=== PATIENT | female | born 1990 | race Caucasian/White ===

== ENCOUNTER 2025-03-31 06:20 | Day surgery (SDC) | payer BC, SELFPAY ==
[2025-03-31] VITALS (9 sets, daily range): BP systolic 101–107; BP diastolic 56–75; BMI 22.3
--- NOTE | 2025-03-31 07:08 | W.SUR.PREOP ---
Pre-Operative Surgical Note
-
I have examined this patient prior to the performance of the scheduled procedure.
The patient's condition is unchanged from the time of the current History and
Physical and the patient is able to undergo the scheduled procedure.
[2025-03-31] MEDS: NORMOSOL-R/PLASMALYTE-A 1000 IV (10:08)
[2025-03-31] MEDS: TYLENOL ORAL SOLUTION 1000 MG PO (10:14)
[2025-03-31] MEDS: TRANSDERM-SCOP 1 PATCH TRANSDERM (11:26)
--- NOTE | 2025-03-31 13:46 | W.IMMPOSTOP ---
Surgical Immed Post Op Note
-
Primary Surgeon: Kris Bee MD
Assisting Surgeon: Derrell Mariano MD (PGY 1)
Pre-op Diagnosis: Right upper quadrant pain, 2 cm umbilical hernia
Post-op Diagnosis: Same
Procedure Performed:
1. Diagnostic laparoscopy
2. Open primary umbilical hernia repair
Anesthesia Type: General
Specimen / Cultures: None
Estimated Blood Loss: 3 cc
Complications: None
Operative Findings: 2 cm umbilical hernia. Diagnostic laparoscopy performed in all 4 quadrants inspected. No obvious pathology identified. No implants noted along the wall or around the liver. The gallbladder looked completely normal without any
evidence of inflammation. Hernia closed primarily with 3 mdgzpo-gf-dwlpu 0 Surgilon sutures.
--- NOTE | 2025-03-31 13:48 | OR.RPT ---
Operative Report
Operative Report
Patient Name: Lidia Xiong
: 1990
Date of Operation: 03/31/2025
Preoperative Diagnosis: Right upper quadrant pain, 2 cm umbilical hernia
Postoperative Diagnosis: Same
Procedure(s):
Diagnostic laparoscopy
Open primary umbilical hernia
Surgeon(s):
Dr. Bee
Ultimate Hoops Scoreboard Operator(s):
Derrell Mariano MD (PGY 1)
Anesthesia: General
Estimated Blood Loss: 3 cc
Urine Output: None
Drains/Lines/Implants: None
Specimens: None
Indication for surgery:
The patient has a symptomatic umbilical hernia as well as postprandial right upper quadrant pain thought to be potentially biliary in nature however all preoperative workup including CT scan, ultrasound as well as HIDA scan all negative. After
review of their therapeutic options, they elected to pursue a combined diagnostic laparoscopy and open hernia repair.
Operative Findings: 2 cm umbilical hernia containing preperitoneal fat. Diagnostic laparoscopy performed in all 4 quadrants inspected. No obvious pathology identified. No implants noted along the wall or around the liver. The gallbladder looked
completely normal without any evidence of inflammation. Hernia closed primarily with 3 htfptc-vl-zfzuo 0 Surgilon sutures.
Details of the operation:
After successful induction of anesthesia, the patient was prepped and draped in the supine position. A team timeout was performed confirming administration of DVT prophylaxis, IV antibiotics and SCDs. The skin was anesthetized with 0.25% Marcaine
and an infraumbilical incision was made and dissection carried down to the fascia. The hernia sac was then encircled and carefully dissected off of the umbilical stalk and debulked using 3-0 Vicryl ties before it was returned to the abdomen. The
defect measured 2 cm. This defect was cannulated with a 5 mm balloon trocar and pneumoperitoneum was established. After confirming no injury upon entry an additional 5 mm trocar was placed in the right upper quadrant. We then began a diagnostic
laparoscopy examining all 4 quadrants of the abdomen and found no overt pathology. We focused our attention to the gallbladder which looked completely normal, without any evidence of inflammation or adhesions. Pictures were taken and placed in her
chart. Pneumoperitoneum was then evacuated. The defect was then closed in the transverse direction using three 0 Surgilon zfuaff-wz-diach sutures. The umbilical stalk was then tacked down to the fascia with a 3-0 Vicryl suture. The dermis was
then approximated with interrupted 3-0 Vicryl sutures followed by Dermabond. The 5 mm port was closed with Monocryl and also covered with glue. The patient returned to the Recovery Room in stable condition. Sponge and instrument counts were
correct. No specimens sent to Pathology.
I was the attending physician and performed the procedure with assistance from the resident above. I was present for all portions of the case.
Kris Bee MD
== END 2025-03-31 15:36 | disposition home or self-care (01) ==
LOC: SDS 06:20
PROVIDERS: ATTENDING PHYSICIAN Surgery
DX: K42.9 Umbilical hernia without obstruction or gangrene (principal); R10.11 Right upper quadrant pain
CPT/HCPCS: 49591

== ENCOUNTER → 2025-04-15 12:34 | Outpatient (REF) | payer BC, SELFPAY | LOC: HWRAD 12:34 | PROVIDERS: ATTENDING PHYSICIAN Surgery; FAMILY PHYSICIAN Family Medicine | DX: N13.2 Hydronephrosis with renal and ureteral calculous obstruction (principal) | CPT/HCPCS: 74018; 76770 ==

== ENCOUNTER → 2025-04-22 14:15 | Outpatient (REF) | payer BC, SELFPAY | LOC: HWRAD 14:15 | PROVIDERS: ATTENDING PHYSICIAN Surgery; FAMILY PHYSICIAN Family Medicine | DX: N13.2 Hydronephrosis with renal and ureteral calculous obstruction (principal) | CPT/HCPCS: 74176 ==

== ENCOUNTER 2025-06-14 10:46 | Emergency (ER) | payer BC, SELFPAY ==
[2025-06-14 10:48] VITALS: BP 116/80
[2025-06-14 11:07] VITALS: BP 121/51
--- NOTE | 2025-06-14 11:13 | ED.GENMED ---
History of Present Illness
General
Chief Complaint: Flank Pain
Time Seen by Provider: 06/14/25 11:03
History of Present Illness
History of Present Illness:
34-year-old female presents the emergency department for evaluation of intermittent left flank pain for the past 4 to 5 days, became severe this morning prompting her to come to the emergency department. She has a prior history of kidney stones but
this does not feel similar. Notes questionable hematuria and urinary urgency this morning. No associated fevers, chills, sweats, or vomiting today. Prior history abdominal surgery includes x 3 and umbilical hernia repair.
Review of Systems
Review of Systems
Allergies reviewed?: Yes
All Other Systems: ROS reviewed and negative except as documented in HPI and ROS
Phy Exam
Physical Exam
Physical Exam:
GEN: Well appearing, NAD, WDWN
HEENT: Oral mucosa moist, no scleral icterus
Cardiac: Regular rate
Lung: No respiratory distress, no tachypnea
Abdomen: Soft, grossly nontender, no rigidity
MSK: No gross deformity or injuries
Skin: Good color, no pallor or jaundice, no rashes
Neuro: AO x3, moves all extremities freely
Psych: Calm, cooperative
Course
Orders/Labs/Results
Orders:
Orders
06/14/25 11:12
0.9% Sodium Chloride 1000 ml [Nss] 1,000 ml IV BOLUS
Ketorolac [Toradol] 15 mg IV NOW STA
Test Result ONCE
06/14/25 11:13
CT Abd/pel Without Iv Or Oral Urgent
Comment:
Reason For Exam: L flank pain
06/14/25 11:33
Complete Blood Count/No Diff Urgent
Comprehensive Metabolic Panel Urgent
HCG, Serum Qualitative Screen Urgent
Urinalysis Reflex To Culture Urgent
Date Specimen was Collected: 06/14/25
Time Specimen was Collected: 11:18
Urine Microscopic Reflex Cult Urgent
Urine Culture Urgent
NIYA Source: U
Specimen Description:
Date Specimen was Collected: 06/14/25
Time Specimen was Collected: 11:18
Abnormal Lab Results
06/14/25
11:33
WBC 13.6 H 10^3/uL
(4.8-10.8)
MCHC 32.7 L g/dL
(33.0-37.0)
MPV 11.3 H fL
(7.4-10.4)
Chloride 108 H mmol/L
(98-107)
Glucose 102 H mg/dl
(70-99)
Calcium 10.7 H mg/dl
(8.4-10.2)
Urine Ketones 1+ A
(Negative)
Ur Occult Blood Reflex 4+ A
(Negative)
Leukocyte Esterase Rfl 1+ A
(Negative)
Urine RBC 50-60 A /HPF
(0-2)
Urine Bacteria (Reflex) Few A
(Negative)
Urine Albumin (Reflex) 1+ A
(Neg - Trace)
06/14/25 11:33
06/14/25 11:33
Vital Signs
Initial and Last Documented VS:
Initial Vital Signs
Temp Pulse Resp BP Pulse Ox
98.8 F 85 17 116/80 99
06/14/25 10:48 06/14/25 10:48 06/14/25 10:48 06/14/25 10:48 06/14/25 10:48
Last Documented Vital Signs
Temp Pulse Resp BP Pulse Ox
98.5 F 89 16 114/73 100
06/14/25 11:30 06/14/25 13:52 06/14/25 13:52 06/14/25 13:52 06/14/25 13:52
MDM/Problems Addressed
MDM/Problems Addressed:
Imaging reveals a punctate stone in the distal ureter at the UVJ. Although this is most likely passable the patient is concerned with her history of small stones do not pass. I reached out to her urologist who will plan to schedule her for OR
procedure later this week should she not pass at home. Her pain is well-controlled that she is reasonable to discharge home for expectant management pending outpatient operative procedure.
*Pulse Oximetry
SaO2: 99
Oxygen Mode of Delivery: Room air
Patient hypoxic: no
*Critical Care Note
Total Time (30-74mins, 75-104mins- exclusive of procedures): Not Applicable
ED Attending Note
-
Portions of this chart may have been created with voice recognition software.� Occasional wrong word or��sound alike� substitutions may have occurred due to the inherent limitations of voice recognition software.
Discharge Plan
Departure
Patient Disposition: Home (Routine Discharge)
Date of Disposition: 06/14/25
Time of Disposition: 13:44
Patient with high blood pressure during this ER visit?: No
Discharge Problem:
Left ureteral stone
Instructions: Kidney Stones (DC)
Prescriptions:
New
tamsulosin 0.4 mg capsule
0.4 mg PO HS Qty: 14 0RF
ketorolac 10 mg tablet
10 mg PO Q8H PRN (Reason: Pain) Qty: 10 0RF
Rx Instructions:
maximum total duration of 5 days from all oral, intranasal, or parenteral formulations
No Action
polyethylene glycol 3350 [Miralax] 17 gram Powder In Packet
17 g PO DAILY
aspirin 81 mg Tablet,Delayed Release (Dr/Ec)
81 mg PO DAILY
alprazolam [Xanax] 0.25 mg Tablet
0.25 mg PO BID
ondansetron 4 mg Tablet,Disintegrating
4 mg PO Q6H PRN (Reason: nausea)
zp-ok-vnxe-FA-Ca carb-vit K 18 mg iron-400 mcg-500 mg Tablet
1 tab PO DAILY
Nurtec ODT 75 mg Tablet,Disintegrating
75 mg PO ONCE PRN (Reason: migraines)
acetaminophen [acetaminophen] 325 mg tablet
650 mg PO Q6HPRN PRN (Reason: mild pain) Qty: 14 0RF
ibuprofen 600 mg tablet
600 mg PO Q6H PRN (Reason: pain) Qty: 14 0RF
Referrals:
Yonis Cartagena MD [Active, Urology] - Call in 1-3 days for appt
David Hoff MD [Family Provider, Family Practice]
Interventions
Interventions:
*Risk Screen - Suicide Last Done: 06/14/25 10:49
*General Assessment Last Done: 06/14/25 10:49
*Neglect/Abuse Screening Last Done: 06/14/25 10:49
*ED- Fall Risk Assessment Last Done: 06/14/25 11:47
*ED COVID-19 Vaccine History Last Done: 06/14/25 10:49
*Nursing Disposition Last Done: 06/14/25 13:53
ES-Sxlgne-Sgztxyxiwp Assessment Last Done: 06/14/25 11:47
ED-Female Genitourinary Assessment Last Done: 06/14/25 11:47
Discharge Date and Time
Discharge Date/Time: 06/14/25 13:54
Print Language: CROATIAN
[2025-06-14 11:30] VITALS: BP 121/51; BMI 21.1
[2025-06-14] MEDS: NSS 1000 IV (11:31)
[2025-06-14] MEDS: TORADOL 15 MG IV (11:31)
[2025-06-14 11:43] LABS: Hematocrit 37.6 % (37.0-47.0); Hemoglobin 12.3 g/dL (12.0-16.0); Mean Corp Hgb Conc. 32.7 g/dL (33.0-37.0); Mean Corpuscular Volume 83.2 fL (81.0-99.0); Platelet Count 221 10^3/uL (130-400); Red Cell Dist. Width 13.2 % (11.5-14.5)
[2025-06-14 11:59] LABS: HCG, Serum Qualitative Screen Negative
[2025-06-14 12:01] LABS: ALT (SGPT) < 10 U/L (0-35); AST (SGOT) 15 U/L (14-36); Albumin 4.9 g/dl (3.5-5.0); Alkaline Phosphatase 58 U/L (38-126); Blood Urea Nitrogen 7 mg/dl (7-17); Calcium 10.7 mg/dl (8.4-10.2); Carbon Dioxide 22 mmol/L (22-30); Chloride 108 mmol/L (98-107); Estimated Creatinine Clearance 115 ml/min; Glucose 102 mg/dl (70-99); Potassium 4.5 mmol/L (3.5-5.1); Sodium 138 mmol/L (135-145); Total Protein 7.5 g/dl (6.3-8.2); eGFR > 60.00
[2025-06-14 12:14] LABS: Urine Character Clear (Clear)
[2025-06-14 12:22] LABS: Urine Red Blood Cell 50-60 /HPF (0-2); Urine White Cell 0-2 /HPF (0-5)
[2025-06-14 12:47] VITALS: BP 109/59
[2025-06-14 13:50] VITALS: BP 114/73
[2025-06-14 13:52] VITALS: BP 114/73
== END 2025-06-14 13:54 | disposition home or self-care (01) ==
LOC: EMR 10:46
PROVIDERS: Physician Assistant; EMERGENCY PHYSICIAN Emergency Medicine; FAMILY PHYSICIAN Family Medicine
DX: N20.1 Calculus of ureter (principal); Z87.442 Personal history of urinary calculi
CPT/HCPCS: 99284; 96374; 96361; 74176; 80053; 81003; 81015; 84703; 85027; 87086

== ENCOUNTER 2025-06-17 06:17 | Day surgery (SDC) | payer BC, SELFPAY ==
[2025-06-17] VITALS (9 sets, daily range): BP systolic 105–122; BP diastolic 63–78; BMI 20.3
--- NOTE | 2025-06-17 13:30 | W.SUR.PREOP ---
Pre-Operative Surgical Note
-
I have examined this patient prior to the performance of the scheduled procedure.
The patient's condition is unchanged from the time of the current History and
Physical and the patient is able to undergo the scheduled procedure.
Left UVJ stone noted on CT imaging.
To OR for left URS/stone extraction/stent placement
IV Levaquin 500 mg auction clerk to OR
[2025-06-17] MEDS: TYLENOL ORAL SOLUTION 650 MG PO (14:51)
[2025-06-17] MEDS: ROXICODONE 5 MG PO (15:35)
== END 2025-06-17 16:32 | disposition home or self-care (01) ==
LOC: SDS 06:17
PROVIDERS: ATTENDING PHYSICIAN Surgery
DX: N23 Unspecified renal colic (principal); Z87.442 Personal history of urinary calculi
CPT/HCPCS: 52351; 74018; 76000

== ENCOUNTER 2025-06-22 02:15 | Emergency (ER) | payer BC, SELFPAY ==
[2025-06-22] VITALS (10 sets, daily range): BP systolic 110–128; BP diastolic 67–85; BMI 21.4
[2025-06-22 02:51] LABS: Urine Character Cloudy (Clear)
[2025-06-22 03:30] LABS: Urine Red Blood Cell 40-50 /HPF (0-2)
[2025-06-22] MEDS: NSS 1000 IV (04:47)
[2025-06-22 05:01] LABS: Hematocrit 36.8 % (37.0-47.0); Hemoglobin 12.2 g/dL (12.0-16.0); Mean Corp Hgb Conc. 33.2 g/dL (33.0-37.0); Mean Corpuscular Volume 83.1 fL (81.0-99.0); Nucleated Red Blood Cells % 0 %; Platelet Count 220 10^3/uL (130-400); Red Cell Dist. Width 13.1 % (11.5-14.5)
[2025-06-22 05:08] LABS: HCG, Serum Qualitative Screen Negative
[2025-06-22 05:16] LABS: ALT (SGPT) < 10 U/L (0-35); AST (SGOT) 13 U/L (14-36); Albumin 4.9 g/dl (3.5-5.0); Alkaline Phosphatase 57 U/L (38-126); Blood Urea Nitrogen 12 mg/dl (7-17); Calcium 11.0 mg/dl (8.4-10.2); Carbon Dioxide 22 mmol/L (22-30); Chloride 108 mmol/L (98-107); Estimated Creatinine Clearance 115 ml/min; Glucose 97 mg/dl (70-99); Potassium 4.3 mmol/L (3.5-5.1); Sodium 140 mmol/L (135-145); Total Protein 7.7 g/dl (6.3-8.2); eGFR > 60.00
--- NOTE | 2025-06-22 05:44 | ED.GENMED ---
History of Present Illness
<ADELINE Pena Jr. Last Filed: 06/23/25 17:42>
General
Chief Complaint: Flank Pain
Source: patient
Exam Limitations: none
Time Seen by Provider: 06/22/25 04:23
Nursing documentation reviewed up to this point in time: agreed with
History of Present Illness
History of Present Illness:
34-year-old female presenting to the emergency department today with concerns of right lower quadrant abdominal pain over the past few days. Has had some degree of pain intermittently over the past few months but claims it is much more severe over
the past 24 hours or so. Also recently had a stone removal of the left ureter 5 days ago. She claims the left side feels better at this point. Does have associated nausea and vomiting.
Review of Systems
<ADELINE Pena Jr. Last Filed: 06/23/25 17:42>
Review of Systems
Allergies reviewed?: Yes
All Other Systems: ROS reviewed and negative except as documented in HPI and ROS
Phy Exam
<ADELINE Pena Jr. Last Filed: 06/23/25 17:42>
Physical Exam
Physical Exam:
GENERAL: Alert , in no apparent distress
EYE: pupils equal and reactive
NECK: Supple, no significant adenopathy.
ENT: o/p clr, mmm.
CARDIAC: Regular rate and rhythm .
LUNGS: Clear breath sounds bilaterally, no acute respiratory distress, no wheezes/rales/rhonchi
ABDOMEN: Right lower quadrant pain to palpation otherwise soft, without focal tenderness, no r/g, no cvat
NEUROLOGICAL: Alert and oriented, no focal neuro deficits
SKIN: Warm and dry, skin intact.
MUSCULOSKELETAL: No edema, well perfused.
PSYCH: Normal and appropriate interaction.
Course
<ADELINE Pena Jr. Last Filed: 06/23/25 17:42>
Orders/Labs/Results
Orders:
Orders
06/22/25 02:20
Complete Blood Count/With Diff Urgent
Comprehensive Metabolic Panel Urgent
HCG, Serum Qualitative Screen Urgent
06/22/25 02:33
Urinalysis Urgent
Date Specimen was Collected: 06/22/25
Time Specimen was Collected: 02:21
Urine Microscopic Urgent
Date Specimen was Collected: 06/22/25
Time Specimen was Collected: 02:21
06/22/25 04:33
Test Result ONCE
06/22/25 04:47
0.9% Sodium Chloride 1000 ml [Nss] 1,000 ml IV BOLUS
06/22/25 05:24
Dicyclomine HCl [Bentyl] 20 mg IM NOW STA
Ketorolac [Toradol] 15 mg IV NOW STA
Ondansetron Injectable [Zofran] 4 mg IV NOW STA
06/22/25 05:44
CT Abd/pel W Iv And Oral Contr Urgent
Comment:
Reason For Exam: RLQ pain
Iohexol [Omnipaque] See Protocol PO NOW STA
06/22/25 08:31
Morphine Sulfate 2 mg .ROUTE .STK-MED ONE
Morphine Sulfate 2 mg IV NOW STA
06/22/25 10:35
Amoxicillin 875 mg/Clav 125 mg [Augmentin 875 mg/125 mg] 1 tablet PO NOW STA
Phenazopyridine HCl [Pyridium] 200 mg PO NOW STA
Abnormal Lab Results
06/22/25 06/22/25
02:20 02:33
WBC 12.6 H 10^3/uL
(4.8-10.8)
Hct 36.8 L %
(37.0-47.0)
MPV 11.9 H fL
(7.4-10.4)
Abs Immat Gran (auto) 0.1 H 10^3/uL
(0-0.05)
Absolute Neuts (auto) 9.3 H 10^3/uL
(1.4-6.5)
Absolute Monos (auto) 0.9 H 10^3/uL
(0.1-0.6)
Lymphocytes % 18.4 L %
(20.5-51.1)
Chloride 108 H mmol/L
(98-107)
Calcium 11.0 H mg/dl
(8.4-10.2)
AST 13 L U/L
(14-36)
Urine Occult Blood 4+ A
(Negative)
Ur Leukocyte Esterase 2+ A
(Negative)
Urine RBC 40-50 A /HPF
(0-2)
Urine Bacteria Few A
(Negative)
Urine Albumin 2+ A
(Neg - Trace)
06/22/25 02:20
06/22/25 02:20
Vital Signs
Initial and Last Documented VS:
Initial Vital Signs
Temp Pulse Resp BP Pulse Ox
98 F 86 22 110/80 100
06/22/25 02:16 06/22/25 02:16 06/22/25 02:16 06/22/25 02:16 06/22/25 02:16
Last Documented Vital Signs
Temp Pulse Resp BP Pulse Ox
98.3 F 75 16 115/69 100
06/22/25 08:26 06/22/25 10:08 06/22/25 10:08 06/22/25 10:08 06/22/25 10:08
<KOURTNEY Dodson - Last Filed: 06/22/25 11:07>
Orders/Labs/Results
Orders:
Orders
06/22/25 02:20
Complete Blood Count/With Diff Urgent
Comprehensive Metabolic Panel Urgent
HCG, Serum Qualitative Screen Urgent
06/22/25 02:33
Urinalysis Urgent
Date Specimen was Collected: 06/22/25
Time Specimen was Collected: 02:21
Urine Microscopic Urgent
Date Specimen was Collected: 06/22/25
Time Specimen was Collected: 02:21
06/22/25 04:33
Test Result ONCE
06/22/25 04:47
0.9% Sodium Chloride 1000 ml [Nss] 1,000 ml IV BOLUS
06/22/25 05:24
Dicyclomine HCl [Bentyl] 20 mg IM NOW STA
Ketorolac [Toradol] 15 mg IV NOW STA
Ondansetron Injectable [Zofran] 4 mg IV NOW STA
06/22/25 05:44
CT Abd/pel W Iv And Oral Contr Urgent
Comment:
Reason For Exam: RLQ pain
Iohexol [Omnipaque] See Protocol PO NOW STA
06/22/25 08:31
Morphine Sulfate 2 mg .ROUTE .STK-MED ONE
Morphine Sulfate 2 mg IV NOW STA
06/22/25 10:35
Amoxicillin 875 mg/Clav 125 mg [Augmentin 875 mg/125 mg] 1 tablet PO NOW STA
Phenazopyridine HCl [Pyridium] 200 mg PO NOW STA
Abnormal Lab Results
06/22/25 06/22/25
02:20 02:33
WBC 12.6 H 10^3/uL
(4.8-10.8)
Hct 36.8 L %
(37.0-47.0)
MPV 11.9 H fL
(7.4-10.4)
Abs Immat Gran (auto) 0.1 H 10^3/uL
(0-0.05)
Absolute Neuts (auto) 9.3 H 10^3/uL
(1.4-6.5)
Absolute Monos (auto) 0.9 H 10^3/uL
(0.1-0.6)
Lymphocytes % 18.4 L %
(20.5-51.1)
Chloride 108 H mmol/L
(98-107)
Calcium 11.0 H mg/dl
(8.4-10.2)
AST 13 L U/L
(14-36)
Urine Occult Blood 4+ A
(Negative)
Ur Leukocyte Esterase 2+ A
(Negative)
Urine RBC 40-50 A /HPF
(0-2)
Urine Bacteria Few A
(Negative)
Urine Albumin 2+ A
(Neg - Trace)
06/22/25 02:20
06/22/25 02:20
Vital Signs
Initial and Last Documented VS:
Initial Vital Signs
Temp Pulse Resp BP Pulse Ox
98 F 86 22 110/80 100
06/22/25 02:16 06/22/25 02:16 06/22/25 02:16 06/22/25 02:16 06/22/25 02:16
Last Documented Vital Signs
Temp Pulse Resp BP Pulse Ox
98.3 F 75 16 115/69 100
06/22/25 08:26 06/22/25 10:08 06/22/25 10:08 06/22/25 10:08 06/22/25 10:08
<Antonino Larson Jr., PA-C - Last Filed: 06/23/25 17:42>
MDM/Problems Addressed
MDM/Problems Addressed:
34-year-old female presenting to the emergency department today with concerns of right lower quadrant abdominal pain worsening over the past day or so. On arrival vital signs normal. Labs showing slight elevation of white count of 12.611 labs
unremarkable urinalysis with red blood cells but no evidence of infection. Does have reproducible pain to the right lower quadrant and does have an appendix plan for CT scan for further assessment.
<Antonino Larson Jr., PA-C - Last Filed: 06/23/25 17:42>
*Pulse Oximetry
SaO2: 98
Oxygen Mode of Delivery: Room air
<KOURTNEY Dodson - Last Filed: 06/22/25 11:07>
*Radiology
Radiology exam reviewed: radiology read reviewed
*Pulse Oximetry
Patient hypoxic: no
*Critical Care Note
Total Time (30-74mins, 75-104mins- exclusive of procedures): Not Applicable
<KOURTNEY Dodson - Last Filed: 06/22/25 11:07>
Update Note
Update Note:
Received signout on patient. Patient complains of pain to the abdomen at this point general abdominal pain, patient was taken to the OR several days ago by urology Dr. Cartagena for left UVJ stone however no stone was identified during procedure.
Patient presenting awake alert no acute distress afebrile white count minimally elevated 12 .6 normal renal function; blood and urine. CAT scan with unremarkable appendix no intestine obstruction or free air and the previous suspected calculus at
the left UVJ is no longer identified there is no suspicious findings for obstructive uropathy bilaterally. no cause of patient's pain on CAT scan.
Patient reexamined continues to complain of pain bilateral flank worse on the left. After additional history and questions patient reports now she has had chronic pain in abdomen and has been evaluated by GI. She lives in [facility] and was seen
by GI Dr. Robles had negative endoscopy and colonoscopy. Now she is in the process of also seeing GI at [place]. She last saw him in April and is scheduled for additional testing. She reports there has been no diagnosis so far as a cause to her
pain. With a negative CAT scan I did speak with urology Dr. Cartagena. She does complain of some pain to the left flank with burning with urination. With recent surgery as per DR Cartagena, will prescribe Augmentin and Pyridium. Urology will message
scheduler maintenance and have patient also evaluated by Dr. Blanco.
ED Attending Note
<Antonino Larson Jr., ADELINE - Last Filed: 06/23/25 17:42>
-
Portions of this chart may have been created with voice recognition software.� Occasional wrong word or��sound alike� substitutions may have occurred due to the inherent limitations of voice recognition software.
Discharge Plan
Departure
Patient Disposition: Home (Routine Discharge)
Date of Disposition: 06/22/25
Time of Disposition: 10:29
Patient with high blood pressure during this ER visit?: No
Condition: Fair
Covid-19: Not Applicable
Discharge Problem:
flank pain, Chronic abdominal pain
Instructions: Flank Pain (DC)
Prescriptions:
New
phenazopyridine [Pyridium] 200 mg tablet
200 mg PO BID PRN (Reason: Pain) Qty: 10 0RF
amoxicillin-pot clavulanate 875-125 mg tablet
1 tab PO BID Qty: 10 0RF
No Action
aspirin 81 mg Tablet,Delayed Release (Dr/Ec)
81 mg PO DAILY
ondansetron 4 mg Tablet,Disintegrating
4 mg PO Q6H PRN (Reason: nausea)
co-fw-zoah-FA-Ca carb-vit K 18 mg iron-400 mcg-500 mg Tablet
1 tab PO DAILY
Nurtec ODT 75 mg Tablet,Disintegrating
75 mg PO ONCE PRN (Reason: migraines)
acetaminophen [acetaminophen] 325 mg tablet
650 mg PO Q6HPRN PRN (Reason: mild pain) Qty: 14 0RF
ibuprofen 600 mg tablet
600 mg PO Q6H PRN (Reason: pain) Qty: 14 0RF
ketorolac 10 mg Tablet
10 mg PO Q6H PRN (Reason: flank pain)
Rx Instructions:
maximum total duration of 5 days from all oral, intranasal, or parenteral formulations
Referrals:
Yonis Cartagena MD [Active, Urology]
Francis,Steph, DO [Active, Urology]
UNKNOWN - PT DOES,NOT KNOW [Family Provider]
Activity Restrictions/Additional Instructions:
As discussed there is no clear cause of your pain however a prescription for Pyridium was sent to your pharmacy to take for discomfort with urination along with Augmentin to treat for possible infection since you recently had surgery. Please
follow-up with urology. In addition Dr. Blanco's office will call you to schedule an appointment to further evaluate symptoms. Return if any worsening of symptoms. In addition please continue to follow-up with a GI specialist for additional
testing.
Interventions
Interventions:
*Risk Screen - Suicide Last Done: 06/22/25 02:16
*General Assessment Last Done: 06/22/25 04:58
*Neglect/Abuse Screening Last Done: 06/22/25 02:16
*ED- Fall Risk Assessment Last Done: 06/22/25 04:58
*ED COVID-19 Vaccine History Last Done: 06/22/25 04:54
*Nursing Disposition Last Done: 06/22/25 11:09
MM-Vgryzq-Owccwvkaik Assessment Last Done: 06/22/25 07:11
ED-Female Genitourinary Assessment Last Done: 06/22/25 07:11
Discharge Date and Time
Discharge Date/Time: 06/22/25 11:09
Print Language: MACEDONIAN
[2025-06-22] MEDS: TORADOL 15 MG IV (05:57)
[2025-06-22] MEDS: BENTYL 20 MG IM (05:57)
[2025-06-22] MEDS: ZOFRAN 4 MG IV (05:58)
[2025-06-22] MEDS: OMNIPAQUE 50 ML PO (06:14)
[2025-06-22] MEDS: MORPHINE SULFATE 2 MG IV (08:35)
[2025-06-22] MEDS: AUGMENTIN 875 MG/125 MG 1 TABLET PO (10:46)
== END 2025-06-22 11:09 | disposition home or self-care (01) ==
LOC: EMR 02:15
PROVIDERS: EMERGENCY PHYSICIAN Student in an Organized Health Care Education/Training Program
DX: G89.29 Other chronic pain (principal); R10.9 Unspecified abdominal pain; Z87.442 Personal history of urinary calculi
CPT/HCPCS: 99284; 74177; 80053; 81003; 81015; 84703; 85025; Q9967

== ENCOUNTER → 2025-07-19 08:50 | Outpatient (REF) | payer BC, SELFPAY | LOC: RAD 08:50 | PROVIDERS: ATTENDING PHYSICIAN Physician Assistant; FAMILY PHYSICIAN Family Medicine | DX: E34.9 Endocrine disorder, unspecified (principal); E83.52 Hypercalcemia | CPT/HCPCS: 76536; 78071; A9500 ==

== ENCOUNTER → 2025-08-18 09:43 | Outpatient (REF) | payer BC, SELFPAY | LOC: RAD 09:43 | PROVIDERS: ATTENDING PHYSICIAN Physician Assistant; FAMILY PHYSICIAN Family Medicine | DX: E83.52 Hypercalcemia (principal); E34.9 Endocrine disorder, unspecified | CPT/HCPCS: 77080; 77081 ==